=== PATIENT | male | born 1950 | race Caucasian/White ===

== ENCOUNTER 2022-09-01 05:42 | Emergency (ER) | payer MEDICARE, OTHER ==
[2022-09-01 07:06] LABS: CORONAVIRUS COVID-19 NAA NEGATIVE (NEGATIVE)
[2022-09-01] MEDS ORDERED: Levofloxacin 750 MG Tab PO ONE (07:50)
== END 2022-09-01 08:33 | disposition home or self-care (01) ==
LOC: JD.ED 05:42
DX: J10.89 Influenza due to other identified influenza virus with other manifestations (principal); D70.9 Neutropenia, unspecified; Z88.2 Allergy status to sulfonamides; Z79.899 Other long term (current) drug therapy; Z86.16 Personal history of COVID-19; Z20.822 Contact with and (suspected) exposure to COVID-19
CPT/HCPCS: 0241U; 36415; 71045; 80053; 83735; 84484; 85025; 93005; 99284